=== PATIENT | male | born 1990 | race Caucasian/White ===

== ENCOUNTER → 2018-06-16 08:19 | Outpatient (CLI) | payer OTHER, SELFPAY ==
[2018-06-16 11:06] LABS: Anion Gap 10 (5-15); BUN 18 mg/dL (7-18); BUN/Creat Ratio 18.9 RATIO (10-20); Calcium,Total 9.3 mg/dL (8.5-10.1); Chloride 103 mmol/L (98-107); Creatinine, Serum 0.95 mg/dL (0.70-1.30); EST Glomerular Filtration Rate 101 mL/min (>60); Est Glom Filt Rate - Afr Amer 122 mL/min (>60); Glucose 96 mg/dL (74-106); Potassium 4.3 mmol/L (3.5-5.1); Sodium Level 138 mmol/L (136-145)
== END ==
PROVIDERS: Family Provider Family Medicine; PCP Family Medicine; Visit Provider Family Medicine
DX: I10 Essential (primary) hypertension (principal)
CPT/HCPCS: 36415; 80048

== ENCOUNTER → 2018-08-28 08:28 | Outpatient (CLI) | payer OTHER, SELFPAY ==
--- NOTE | 2018-08-28 08:36 | RAD_ITS ---
STUDY: X-RAY - LUMBAR SPINE REASON FOR EXAM: Male, 27 years old. Low back pain x2 weeks. TECHNIQUE: 5 view(s) of the lumbar spine were obtained. COMPARISON: None FINDINGS: Normal lumbar lordosis. There is no substantial scoliosis. There is a normal alignment of the vertebrae. Normal vertebral bodies and endplates. Normal disc space heights. The soft tissue structures are unremarkable. RAD/L/S Spine Min 4 Views IMPRESSION: Normal x-ray examination of the lumbar spine. Electronically Signed: Abdi Causey MD at 19:23 EST , Service support ,
--- OUTSIDE RECORDS SUMMARY | 2018-11-01 21:15 | XMS RPT_ITS ---
:1990 Author Organization OHIP Care Team Providers Name Role Phone Naren Dyer Attending Unavailable Naren Dyer Referring Unavailable Naren Dyer Primary Care Unavailable Naren Dyer Attending Unavailable Naren Dyer Referring Unavailable Manisha, Naren Primary Care Unavailable Naren Dyer Attending Unavailable Naren Dyer Primary Care Unavailable PROBLEMS PROBLEMS No Problem Records FoundPROCEDURES PROCEDURES No Procedure Records FoundRESULTS RESULTS INITAL EVALUATION (1) Observed: 09/04/2018 Status: F Source: [place] 6:13 PM [facility] [address] [place] [address] / REHABILITATION SERVICES INITIAL EVALUATION MR#: [id number] Acct: [id number] Name: DANIKA MCKEON Rep #: [id number] : 1990 27 From: Eddie Zhang PT, ATC Referring Dr.: Naren Dyer MD Status: REG RCR Insurance: [employer] [facility] [employer] Patient's Visit Information DANIKA MCKEON is a 27 year old M referred to Physical Therapy by Richard Dyer MD with a diagnosis of L piriformus syndrome. Date of Evaluation: 09/04/18 Physical Therapist: Eddie Zhang, PT, ATC - Visit Plan Frequency: 1x/Week Duration: 2 Weeks Plan: Pt was issued a HEP of LE stretching and foam rolling activity for his piriformus muscle pain. recheck in 1 week or DC at that time - Subjective Findings: Pt reports he has had pain in his L hip for 2 1/2 weeks now. Pt reports the pain is persistent in nature, and notes the pain has really been bothering her. Pt notes his pain originates in the L glute and extends down his L HS. Pt reports he has been taking aleve to aid with the pain, but just cant get rid of it. Pain is always terrible in the morning. Pt reports No tingling or numbness in L LE, just a soreness down L LE. Xrays of the L/S are negative. No sleep difficulty secondary to pain. Pt reports he works for [employer] and notes he stands on concrete 8 hours a day and lifts heavy objects. 2/10 pain at rest, 8/10 at worst. - Pain L hip Pain Intensity (Out of 10): 2 Pain Intensity Range: 8 - Objective Neuro: B LE sensation is WNL to light touch. B patellar reflex= 2/3. Palpation: Pt is very sore near greater trochaner and mid glute region. MMT: B LE's 5/5 throughout. Flexibility: Pt is very limited with Piriformus flexibility. Special tests: pos piriformus sign. NE with REIL or RFIL - Goals Goal 1:: I with HEP 1-2 visits Goal Time Frame: 1 Week - Rehabilitation Potential Physical Therapy Diagnosis: L hip pain, weakness, and difficulty with ambulation secondary to piriformux syndrome Rehabilitation Potential: Good - Anticipated Interventions Patient/Client Instruction: Educate patient on: Condition, Plan of Care For the Purpose of:: To improve self management Therapeutic Exercise to Include: Flexibilty training For the Purpose of:: To decrease pain, To improve muscle performance and motor function Thank you for the opportunity to evaluate your patient. For Medicare and Medicare HMO plans, please review the plan of care and approve it. It will need to be FAXED BACK to us at [phone] for Medicare purposes. For Medicare only, by signing this I certify the plan of care. Please let me know if there are questions or concerns regarding this plan of care. Physician Signature: Date: <Electronically signed by Eddie Zhang PT, ATC> 09/04/18 1813 CC: Naren Dyer MD [facility] Signed L/S SPINE MIN 4 Observed: 08/28/2018 Status: F Source: [place] VIEWS 8:36 AM [facility] Imaging Services [address] [place] [address] L/S Spine Min 4 Views MR#: [id number] Acct: [id number] Name: DANIKA MCKEON Rep #: [id number] : 1990 M 27 From: Abdi Causey MD PCP: Naren Dyer MD Status: REG CLI Study: L/S Spine Min 4 Views Date of Exam: 08/28/18 Exam# [id number] Ordering Dr: Richard Dyer MD STUDY: X-RAY - LUMBAR SPINE REASON FOR EXAM: Male, 27 years old. Low back pain x2 weeks. TECHNIQUE: 5 view(s) of the lumbar spine were obtained. COMPARISON: None FINDINGS: Normal lumbar lordosis. There is no substantial scoliosis. There is a normal alignment of the vertebrae. Normal vertebral bodies and endplates. Normal disc space heights. The soft tissue structures are unremarkable. RAD/L/S Spine Min 4 Views IMPRESSION: Normal x-ray examination of the lumbar spine. Electronically Signed: Abdi Causey MD at 19:23 EST , Service support , CC: Naren Dyer MD Athletic Shoe Designer: Signed BASIC METABOLIC Collected: 06/16/2018 Status: F Source: [place] PROFILE (BMP) 8:21 AM [facility] TYPE CODE TESTS RESULT OUT OF RANGE REFERENCE UNITS LAB L501.0100 74-106 mg/dL Normal GLU 96 Result Comment: Please note revised GLUCOSE reference range effective 2017. LAB L501.1000 7-18 mg/dL Normal BUN 18 LAB L501.1100 0.70-1.30 mg/dL Normal CREAT,SERUM 0.95 Result Comment: The validity of the calculated GFR AND GFRAA in patients over 70 years has not been determined. Clinical correlation is essential. LAB L501.1110 >60 mL/min Normal EST GFR 101 Result Comment: Non- GFR Calc LAB L501.1115 >60 mL/min Normal EST GFR - AA 122 Result Comment: GFR Calc LAB L501.1300 10-20 RATIO Normal BUN/CRE 18.9 LAB L501.2200 8.5-10.1 mg/dL CA Normal 9.3 LAB L501.5300 136-145 mmol/L NA Normal 138 LAB L501.5600 3.5-5.1 mmol/L K Normal 4.3 Result Comment: Slight Hemolysis, Result may be falsely increased. LAB L501.5900 98-107 mmol/L Normal CL 103 LAB L501.6100 21.0-32.0 mmol/L Normal CO2 25.0 LAB L501.6200 5-15 Normal GAP 10 Performed By: #### L500.2500 #### [facility] [address] [place] [place], [address] CNOV Observed: 12/06/2017 Status: COMPLETED Source: [place] 7:15 PM [facility] REPOSITORY Office Visit (WSTR) JAYA MCKEON ([id number]) 1990 M Date Time Provider Department 12/06/17 7:15 PM LOGAN BUTLER [facility] During your visit today, we recorded the following information about you: Temperature Pulse Respiration Blood pressure 98.3 degrees 74/minute 18/minute 140/90 Weight 133.4 kg Logan Butler MD 12/06/2017 7:26 PM Signed Patient presents with: Acute Visit: sore on thigh HPI: Skin Lesion: Location: left lateral thigh Noticed a few days ago, may have been present before that. Does not recall an injury. Pruritis/Pain: NO Change: NO Drainage/blister/pustule/ulceration: Firm muscle like under the skin MEDICATIONS: FLUTICASONE PROPIONATE (FLONASE ALLERGY RELIEF NASAL) Use in the nose. loratadine(CLARITIN 10 MG TAB) Take one(1) tablet daily prn ALLERGIES: ALLERGIES Allergen Reactions - Antihistamine [Diph* - Environmental [Othe* VITALS: BP 140/90 Pulse 74 Temp 36.8 ?C (98.3 ?F) (Left Tympanic) Resp 18 Wt 133.4 kg (294 lb) BMI 39.82 kg/m2 PE: Pleasant, in no acute distress. Leg: Left compared to right. 12x5cm soft mobile subcutaneous mass lateral mid thigh. ASSESSMENT/PLAN: 1. Lipoma of extremity - ICD9: 214.9, ICD10: D17.79 Most likely lipoma based on exam. He was advised to follow up with surgery if there are any changes or he has further concern. Logan Butler MD Referring Provider: SELF [200] Allergies As of Date: 12/06/2017 Noted Allergy Reaction ANTIHISTAMINE (DIPHENHYDRAMINE HC*06/28/2005 environmental [Other] 06/28/2005 Date Reviewed: 12/06/2017 Reviewed by: Cynthia Myers Ma - Fully Assessed Reason for Visit: Acute Visit [896] Cmt: sore on thigh Primary Visit Diagnosis:Lipoma of extremity [D17.79] Prescriptions as of 12/06/2017 Sig: FLONASE ALLERGY RELIEF NASAL Use in the nose. CLARITIN 10 MG TABLET Take one(1) tablet daily prn Problem List As Of Date 12/06/2017 Noted Resolved Lesion of Ulnar Nerve [G56.20] INVALID FOR* Follow-Up Examination, Following Unspecified Morales*INVALID FOR* Encounter Status:Closed by LOGAN BUTLER MD on 12/06/17 PROGRESS Observed: 12/06/2017 Status: COMPLETED Source: [place] 7:09 PM [facility] REPOSITORY HNO ID: [id number] Author: Logan Butler Service: (none) Author Type: Physician Type: Progress Notes Filed: 12/06/2017 7:26 PM Note Text: Patient presents with: Acute Visit: sore on thigh HPI: Skin Lesion: Location: left lateral thigh Noticed a few days ago, may have been present before that. Does not recall an injury. Pruritis/Pain: NO Change: NO Drainage/blister/pustule/ulceration: Firm muscle like under the skin MEDICATIONS: FLUTICASONE PROPIONATE (FLONASE ALLERGY RELIEF NASAL) Use in the nose. loratadine(CLARITIN 10 MG TAB) Take one(1) tablet daily prn ALLERGIES: ALLERGIES Allergen Reactions - Antihistamine [Diph* - Environmental [Othe* VITALS: BP 140/90 Pulse 74 Temp 36.8 ?C (98.3 ?F) (Left Tympanic) Resp 18 Wt 133.4 kg (294 lb) BMI 39.82 kg/m2 PE: Pleasant, in no acute distress. Leg: Left compared to right. 12x5cm soft mobile subcutaneous mass lateral mid thigh. ASSESSMENT/PLAN: 1. Lipoma of extremity - ICD9: 214.9, ICD10: D17.79 Most likely lipoma based on exam. He was advised to follow up with surgery if there are any changes or he has further concern. Logan Butler MD ALLERGIES ALLERGIES DATE TYPE / CODE NAME / CODE REACTION SEVERITY SOURCE DRUG DIPHENHYDRAMINE HCL [place] [address] INGREDI/[id number]( [facility] Main SNOMED CT) [place] Repository Miscellaneous OTHER [place] [address] Allergy/[id number]( [facility] SNOMED CT) [place] Repository ENCOUNTERS ENCOUNTERS ADMIT/DISCHARGE ACCOUNT ADMITTING ENCOUNTER LOCATION SOURCE NUMBER CLASS 09/04/2018 [id number] [facility] ing:PT Repository 08/28/2018 [id number] [facility] ing:HPRAD Repository 06/16/2018 [id number] [facility] ing:MFPLAB Repository 12/06/2017/12/10/[id number] Repository PAYERS PAYERS ENCOUNTER GUARANTOR PAYER SUBSCRIBER SOURCE 09/04/2018 JAYA Davila Primary DANIKA [id number] Insurance:MEDICAL MUSSELMANDOB: [id number] [address]Kpp: Number: Repository [id number] (HP) Date:[id number] [place] [id number]: 09/04/2018 Secondary DANIKA Pimentel Insurance:[facility] PACKAGE MUSSELMANDOB: [facility] Number: [id number] Hospital [id number] Repository Date:2018-08-28 09/04/2018 Tertiary NOT GIVENUNK [place] Insurance:SELF PAY [facility] Number: Effective Repository Date:2018-08-28 08/28/2018 Jaya Davila Primary DANIKA Pimentel [id number] Insurance:MEDICAL MUSSELMANDOB: [facility] [id number] [facility] [place] [address]Chb: Number: Repository [id number] (HP) Date:[id number] [address] [place], [place] [address]: 08/28/2018 Secondary NOT GIVENUNK [place] Insurance:SELF PAY [facility] Number: Effective Repository Date:2018-08-28 06/16/2018 Jaya Davila Primary DANIKA Pimentel [id number] Insurance:MEDICAL MUSSELMANDOB: [facility] [id number] [address]Noi: Number: Repository [id number] (HP) Date:[id number] [address] [address]GD: 06/16/2018 Secondary NOT GIVENUNK [place] Insurance:SELF PAY [facility] Number: Effective Repository Date:2018-06-16
== END ==
PROVIDERS: Family Provider Family Medicine; PCP Family Medicine; Referring Provider Family Medicine; Visit Provider Family Medicine
DX: M54.5 Low back pain (principal)
CPT/HCPCS: 72110

== ENCOUNTER 2018-12-31 16:00 | Outpatient (RCR) | payer OTHER, SELFPAY ==
--- NOTE | 2018-09-04 18:13 | HP.PTEVAL ---
Patient's Visit Information DANIKA MCKEON is a 27 year old M referred to Physical Therapy by Richard Dyer MD with a diagnosis of L piriformus syndrome. Date of Evaluation: 09/04/18 Physical Therapist: Eddie Zhang PT, ATC - Visit Plan Frequency: 1x/Week Duration: 2 Weeks Plan: Pt was issued a HEP of LE stretching and foam rolling activity for his piriformus muscle pain. recheck in 1 week or DC at that time - Subjective Findings: Pt reports he has had pain in his L hip for 2 1/2 weeks now. Pt reports the pain is persistent in nature, and notes the pain has really been bothering her. Pt notes his pain originates in the L glute and extends down his L HS. Pt reports he has been taking aleve to aid with the pain, but just cant get rid of it. Pain is always terrible in the morning. Pt reports No tingling or numbness in L LE, just a soreness down L LE. Xrays of the L/S are negative. No sleep difficulty secondary to pain. Pt reports he works for [email or web address] and notes he stands on concrete 8 hours a day and lifts heavy objects. 2/10 pain at rest, 8/10 at worst. - Pain L hip Pain Intensity (Out of 10): 2 Pain Intensity Range: 8 - Objective Neuro: B LE sensation is WNL to light touch. B patellar reflex= 2/3. Palpation: Pt is very sore near greater trochaner and mid glute region. MMT: B LE's 5/5 throughout. Flexibility: Pt is very limited with Piriformus flexibility. Special tests: pos piriformus sign. NE with REIL or RFIL - Goals Goal 1:: I with HEP 1-2 visits Goal Time Frame: 1 Week - Rehabilitation Potential Physical Therapy Diagnosis: L hip pain, weakness, and difficulty with ambulation secondary to piriformux syndrome Rehabilitation Potential: Good - Anticipated Interventions Patient/Client Instruction: Educate patient on: Condition, Plan of Care For the Purpose of:: To improve self management Therapeutic Exercise to Include: Flexibilty training For the Purpose of:: To decrease pain, To improve muscle performance and motor function Thank you for the opportunity to evaluate your patient. For Medicare and Medicare HMO plans, please review the plan of care and approve it. It will need to be FAXED BACK to us at [phone] for Medicare purposes. For Medicare only, by signing this I certify the plan of care. Please let me know if there are questions or concerns regarding this plan of care. Physician Signature: Date:
--- NOTE | 2019-02-23 15:53 | HP.PTDCSUM ---
HP - PT D/C Summary It has been my pleasure to treat DANIKA MCKEON under orders from Richard Dyer MD, for the diagnosis of L piriformus syndrome for a total of 11 visit(s). Discharge Date: Please see the following information for a summary of their discharge status. - Subjective Subjective: Patient reports pain is some better but cont to have pain left buttuck and shift deformity. Discussed with patient about RTD and possible chiropractor,. Talked to Dr Dyer - Pain L hip Pain Intensity (Out of 10): 3 - Overall Improvement % Improvement: 70 - Objective Objective/Function: POSTURE: right lateral shift deformity. NEURO: REFLEXES 2/3 L3-4,L4-5,L5-S1. MMT: 5/5. LUMBAR ROM: flexion min ,extension pain buttuck. left side glides pain,extension pain buttuck. REIL WITH HIP TO RIGHT PAIN ,RIGHTSIDE GLIDES PAIN BUTTUCK - Goals Goal 1:: I with HEP 1-2 visits Goal Progress: Goal Met - Plan Plan: RTD ,POSSIBLE CHIROPRACTOR DISCUSSED WITH MD. IF NOT BETTER WITH CHIROPRCATOR POSSIBLE MRI - D/C Information If there are questions or concerns regarding this patient's physical therapy, please feel free to call me at [phone]. Thank you for the referral of this patient. Sincerely, Reginald López, PT, Cert MDT, OCS
== END 2018-12-31 19:00 | disposition home or self-care (01) ==
LOC: PT 16:00
PROVIDERS: Family Provider Family Medicine; PCP Family Medicine; Referring Provider Family Medicine; Visit Provider Family Medicine
DX: G57.02 Lesion of sciatic nerve, left lower limb (principal)
CPT/HCPCS: 97014; 97110; 97161; 97530; G0283

== ENCOUNTER → 2019-05-11 10:14 | Outpatient (CLI) | payer OTHER, SELFPAY ==
[2019-02-05 16:53] VITALS: BMI 41.3
[2019-05-11 13:07] LABS: Vitamin D,25 Hydroxy 23.3 ng/mL (29.95-100.01)
[2019-05-11 13:12] LABS: ALB/GLOB Ratio 1.2 RATIO (0.9-2.4); AST(SGOT) 22 U/L (15-37); Alanine Aminotransfer ALT/SGPT 39 U/L (16-61); Alkaline Phosphatase 79 U/L (45-117); Anion Gap 7 (5-15); BUN 14 mg/dL (7-18); BUN/Creat Ratio 16.6 RATIO (10-20); Calcium,Total 9.6 mg/dL (8.5-10.1); Chloride 104 mmol/L (98-107); Cholesterol 183 mg/dL (200); Creatinine, Serum 0.84 mg/dL (0.70-1.30); EST Glomerular Filtration Rate 115 mL/min (>60); Est Glom Filt Rate - Afr Amer 139 mL/min (>60); Globulin 3.4 g/dL (2.2-4.2); Glucose 100 mg/dL (74-106); High Density Lipoprotein 42 mg/dL; Potassium 4.5 mmol/L (3.5-5.1); Protein, Total 7.4 g/dL (6.4-8.2); Sodium Level 137 mmol/L (136-145); Triglycerides 232 mg/dL; Very Low Density Lipoprotein 46 mg/dL (5-40)
== END ==
PROVIDERS: Family Provider Family Medicine; PCP Family Medicine; Referring Provider Family Medicine; Visit Provider Family Medicine
DX: I10 Essential (primary) hypertension (principal); E55.9 Vitamin D deficiency, unspecified
CPT/HCPCS: 36415; 80053; 80061; 82306

== ENCOUNTER → 2020-08-18 09:43 | Outpatient (CLI) | payer BC, SELFPAY ==
[2019-02-05 16:53] VITALS: BMI 41.3
[2020-08-18 13:00] LABS: ALB/GLOB Ratio 1.1 RATIO (0.9-2.4); AST(SGOT) 28 U/L (15-37); Alanine Aminotransfer ALT/SGPT 43 U/L (16-61); Albumin, Serum 3.9 g/dL (3.2-5.0); Alkaline Phosphatase 71 U/L (45-117); Anion Gap 8 (5-15); BUN 13 mg/dL (7-18); BUN/Creat Ratio 15.9 RATIO (10-20); Calcium,Total 9.2 mg/dL (8.5-10.1); Chloride 104 mmol/L (98-107); Cholesterol 189 mg/dL (200); Creatinine, Serum 0.82 mg/dL (0.70-1.30); EST Glomerular Filtration Rate 118 mL/min (>60); Est Glom Filt Rate - Afr Amer 142 mL/min (>60); Globulin 3.5 g/dL (2.2-4.2); Glucose 104 mg/dL (74-106); High Density Lipoprotein 35 mg/dL; Protein, Total 7.4 g/dL (6.4-8.2); Sodium Level 135 mmol/L (136-145); Triglycerides 163 mg/dL; Very Low Density Lipoprotein 33 mg/dL (5-40)
== END ==
PROVIDERS: PCP Family Medicine; Referring Provider Family Medicine; Visit Provider Family Medicine
DX: R73.01 Impaired fasting glucose (principal)
CPT/HCPCS: 36415; 80053; 80061

== ENCOUNTER 2021-07-29 03:25 | Emergency (ER) | payer OTHER, SELFPAY ==
[2021-07-29 03:26] VITALS: BP 164/93; PULSE 109; RESP 23; TEMP 36.8; O2SAT 96; BMI 48.4
--- NOTE | 2021-07-29 03:33 | CT_ITS ---
HISTORY: Syncope TECHNIQUE: Multiple axial images were obtained of the brain without intravenous contrast. Coronal and sagittal reformats obtained. Bone algorithm axial images obtained. A radiation dose optimization technique was used for this scan. COMPARISON: None FINDINGS: # of images incl. paperwork: 259 HEMORRHAGE: No evidence of acute intracranial hemorrhage. CEREBRAL PARENCHYMA: --Volume: Unremarkable for age. --White matter: Unremarkable. --Mass: No evidence of intracranial mass. --Stroke: Dillon-white matter differentiation is preserved. VENTRICULAR SYSTEM: No hydrocephalus. MASS EFFECT: No midline shift or focal sulci effacement. Basal cisterns are preserved. SCALP: No large scalp hematoma. CALVARIUM/SKULL BASE: No fracture. PARANASAL SINUSES: Clear. MASTOID AIR CELLS: Clear. ORBITS: Imaged portions are unremarkable. ASPECTS acute stroke score: 10 CT/Brain/Head without Contrast IMPRESSION: No CT evidence of acute intracranial hemorrhage or injury. Individualized dose optimization techniques were used for this CT. at 0435 Reported and signed by: Ray Long MD Electronically Signed: Ray Long MD at 4:34 EST Tel , Service support ,
--- NOTE | 2021-07-29 03:33 | EKG12_ITS ---
Test Reason : DYSRHYTHMIA Blood Pressure : / mmHG Vent. Rate : 108 BPM Atrial Rate : 108 BPM P-R Int : 146 ms QRS Dur : 094 ms QT Int : 338 ms P-R-T Axes : 046 -13 022 degrees QTc Int : 452 ms Sinus tachycardia Otherwise normal ECG Confirmed by MARCIO SAMAYOA, PEDRO ([id number]), book editor TASNEEM LIMA ([id number]) on 07/31/2021 11:29:01 AM Referred By: THEODORE Confirmed By:PEDRO BUCKLEY MD
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
[2021-07-29] MEDS: 0.9% Normal Saline 1,000 ML 1000 ML IV (03:54)
[2021-07-29 03:58] LABS: Absolute Lymphocyte Count 1.77 X10^3/uL (0.83-4.51); Basophil# 0.05 X10^3/uL; Basophil% 0.3 % (0-1); Eosinophil# 0.03 X10^3/uL; Eosinophils% 0.2 % (0-5); Hemoglobin 15.4 g/dL (13.0-16.5); Lymphocyte # 1.77 X10^3/ul (0.83-4.51); Lymphocyte % 9.6 % (19-41); Mean Corp Hgb Conc 34.2 g/dL (32-36); Mean Corpuscular Hgb 30.9 pg (27.0-32.0); Mean Corpuscular Volume 90.2 fL (80-94); Mean Platelet Vol. 10.4 fl (6.2-12.0); Monocyte# 1.44 X10^3/uL; Monocyte% 7.8 % (0-10); NRBC Flagged by Analyzer 0 % (0-5); Neutrophil # 14.97 X10^3/uL (2.7-7.7); Neutrophil % 81.3 % (47-70); Platelet Count 237 K/mm3 (150-450); RBC Distribution Width CV 13.6 % (11.6-14.6); RBC Distribution Width SD 45.3 fl (35.1-43.9); Red Blood Count 4.99 M/mm3 (4.6-6.2); White Blood Count 18.4 K/mm3 (4.4-11.0)
[2021-07-29 04:17] LABS: ALB/GLOB Ratio 1.1 RATIO (0.9-2.4); AST(SGOT) 30 U/L (15-37); Alanine Aminotransfer ALT/SGPT 48 U/L (16-61); Albumin, Serum 3.8 g/dL (3.2-5.0); Alkaline Phosphatase 68 U/L (45-117); Anion Gap 10 (5-15); BUN 14 mg/dL (7-18); BUN/Creat Ratio 16.5 RATIO (10-20); Calcium,Total 8.7 mg/dL (8.5-10.1); Chloride 101 mmol/L (98-107); Creatinine, Serum 0.85 mg/dL (0.70-1.30); EST Glomerular Filtration Rate 112 mL/min (>60); Est Glom Filt Rate - Afr Amer 135 mL/min (>60); Estimated Creatinine Clearance 143.61 ml/min; Globulin 3.6 g/dL (2.2-4.2); Glucose 130 mg/dL (74-106); Potassium 4.1 mmol/L (3.5-5.1); Protein, Total 7.4 g/dL (6.4-8.2); Sodium Level 134 mmol/L (136-145)
[2021-07-29 05:45] VITALS: BP 144/80; PULSE 98; RESP 16; O2SAT 97
== END 2021-07-29 05:50 | disposition home or self-care (01) ==
PROVIDERS: Emergency Provider Emergency Medicine; PCP Family Medicine
DX: R55 Syncope and collapse (principal); I10 Essential (primary) hypertension; E66.9 Obesity, unspecified; Z68.42 Body mass index [BMI] 45.0-49.9, adult; Z79.899 Other long term (current) drug therapy
CPT/HCPCS: 70450; 80053; 82077; 85025; 93005; 96360; 96361; 99285; J7030

== ENCOUNTER → 2021-08-07 16:55 | Outpatient (CLI) | payer OTHER, SELFPAY ==
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
== END ==
PROVIDERS: PCP Family Medicine; Referring Provider Nurse Practitioner Family; Visit Provider Nurse Practitioner Family
DX: M25.552 Pain in left hip (principal)
CPT/HCPCS: 73502

== ENCOUNTER 2021-08-31 09:12 | Outpatient (CLI) | payer OTHER, SELFPAY ==
--- NOTE | 2021-08-31 09:16 | RAD_ITS ---
STUDY: X-RAY - RIGHT HAND REASON FOR EXAM: Right hand injury, tenderness over the third metacarpal head with some swelling. TECHNIQUE: 3 view(s) of the hand. COMPARISON: None. FINDINGS: Normal radiocarpal articulation. Normal distal radioulnar joint. There is a scaphoid fracture. Normal carpal articulations Normal carpometacarpal articulation of the thumb. Normal second through fifth carpometacarpal joints. Normal metacarpi. Normal metacarpophalangeal joint of the thumb. Normal interphalangeal joint of the thumb. Normal proximal and distal phalanges of the thumb. Normal metacarpophalangeal joints of the second through fifth fingers. Normal proximal and distal interphalangeal joints of the second through fifth fingers. There is a nondisplaced fracture of the ulnar base of the fourth distal phalanx. The soft tissue structures are unremarkable. RAD/Hand Min 3 Views IMPRESSION: Scaphoid fracture. Fourth distal phalangeal fracture. Electronically Signed: Neil Kirk MD at 12:14 EST Tel , Service support ,
--- NOTE | 2021-08-31 09:16 | RAD_ITS ---
ACR Level 3 findings have been noted. An addendum which confirms receipt of the report will follow. STUDY: X-RAY - RIGHT WRIST REASON FOR EXAM: Right wrist pain in the scaphoid area, right wrist injury before [place]. TECHNIQUE: 4 view(s) of the wrist were obtained. COMPARISON: None. FINDINGS: Normal visualized distal radius and ulna. Normal radiocarpal articulation. Normal distal radioulnar articulation. There is a nondisplaced fracture of the proximal pole of the scaphoid. Normal carpal articulations. Normal carpometacarpal articulation of the thumb. Normal second through fifth carpometacarpal articulations. Normal visualized metacarpal bones. The soft tissue structures are unremarkable. RAD/Wrist min 3 Views IMPRESSION: Scaphoid fracture. Electronically Signed: Neil Kirk MD at 11:46 EST Tel , Service support ,
== END 2021-08-31 23:59 | disposition short-term general hospital (02) ==
LOC: MTRAD 09:13
PROVIDERS: PCP Family Medicine; Referring Provider Family Medicine; Visit Provider Family Medicine
DX: M25.531 Pain in right wrist (principal)
CPT/HCPCS: 73110; 73130

== ENCOUNTER 2021-10-11 12:04 | Outpatient (CLI) | payer OTHER, SELFPAY ==
[2021-10-11 15:24] LABS: Hematocrit 46.9 % (40-54); Hemoglobin 15.9 g/dL (13.0-16.5); Mean Corp Hgb Conc 33.9 g/dL (32-36); Mean Corpuscular Hgb 30.6 pg (27.0-32.0); Mean Corpuscular Volume 90.4 fL (80-94); Mean Platelet Vol. 11.1 fl (6.2-12.0); Platelet Count 241 K/mm3 (150-450); RBC Distribution Width CV 13.2 % (11.6-14.6); RBC Distribution Width SD 44.4 fl (35.1-43.9); Red Blood Count 5.19 M/mm3 (4.6-6.2); White Blood Count 7.6 K/mm3 (4.4-11.0)
[2021-10-11 15:38] LABS: Partial Thromboplast Time 34.8 Seconds (24.1-36.2)
[2021-10-11 16:11] LABS: Anion Gap 11 (5-15); BUN 15 mg/dL (7-18); BUN/Creat Ratio 21.6 RATIO (10-20); Calcium,Total 9.3 mg/dL (8.5-10.1); Chloride 102 mmol/L (98-107); Creatinine, Serum 0.69 mg/dL (0.70-1.30); EST Glomerular Filtration Rate 141 mL/min (>60); Est Glom Filt Rate - Afr Amer 171 mL/min (>60); Glucose 90 mg/dL (74-106); Potassium 4.2 mmol/L (3.5-5.1); Sodium Level 135 mmol/L (136-145)
== END 2021-10-11 23:59 | disposition home or self-care (01) ==
LOC: MFPLAB 12:09
PROVIDERS: PCP Family Medicine; Referring Provider Family Medicine; Visit Provider Family Medicine
DX: Z01.818 Encounter for other preprocedural examination (principal)
CPT/HCPCS: 36415; 80048; 85027; 85610; 85730

== ENCOUNTER → 2022-06-28 | Outpatient (CLI) | payer OTHER, SELFPAY ==
[2022-06-28 11:04] LABS: AST(SGOT) 23 U/L (15-37); Alanine Aminotransfer ALT/SGPT 42 U/L (16-61); Albumin, Serum 3.7 g/dL (3.2-5.0); Alkaline Phosphatase 78 U/L (45-117); Anion Gap 8 (5-15); BUN 13 mg/dL (7-18); Calcium,Total 9.5 mg/dL (8.5-10.1); Chloride 103 mmol/L (98-107); Cholesterol 168 mg/dL (200); Creatinine, Serum 0.76 mg/dL (0.70-1.30); EST Glomerular Filtration Rate 126 mL/min (>60); Est Glom Filt Rate - Afr Amer 153 mL/min (>60); Globulin 3.7 g/dL (2.2-4.2); Glucose 112 mg/dL (74-106); High Density Lipoprotein 37 mg/dL; Potassium 4.3 mmol/L (3.5-5.1); Protein, Total 7.4 g/dL (6.4-8.2); Sodium Level 136 mmol/L (136-145); Thyroid Stim Hormone (TSH) 2.18 uIU/mL (0.358-3.74); Triglycerides 140 mg/dL; Very Low Density Lipoprotein 28 mg/dL (5-40)
== END | disposition home or self-care (01) ==
LOC: MFPLAB 09:19
PROVIDERS: PCP Family Medicine; Referring Provider Family Medicine; Visit Provider Family Medicine
DX: R73.01 Impaired fasting glucose (principal)
CPT/HCPCS: 36415; 80053; 80061; 82533; 84403; 84443

== ENCOUNTER → 2023-09-09 | Outpatient (CLI) | payer OTHER, SELFPAY ==
[2023-09-09 13:00] LABS: AST(SGOT) 20 U/L (15-37); Alanine Aminotransfer ALT/SGPT 39 U/L (16-61); Albumin, Serum 3.7 g/dL (3.2-5.0); Alkaline Phosphatase 72 U/L (45-117); Anion Gap 5 (5-15); BUN 12 mg/dL (7-18); BUN/Creat Ratio 15.6 RATIO (10-20); Calcium,Total 9.3 mg/dL (8.5-10.1); Chloride 106 mmol/L (98-107); Creatinine, Serum 0.77 mg/dL (0.70-1.30); EST Glomerular Filtration Rate 124 mL/min (>60); Est Glom Filt Rate - Afr Amer 150 mL/min (>60); Globulin 3.6 g/dL (2.2-4.2); Glucose 95 mg/dL (74-106); Protein, Total 7.3 g/dL (6.4-8.2); Sodium Level 136 mmol/L (136-145)
== END | disposition home or self-care (01) ==
LOC: MFPLAB 10:29
PROVIDERS: PCP Family Medicine; Visit Provider Family Medicine
DX: R10.13 Epigastric pain (principal)
CPT/HCPCS: 36415; 80053; 84403

== ENCOUNTER 2024-03-16 13:57 | Emergency (ER) | payer OTHER, SELFPAY ==
[2024-03-16] VITALS (8 sets, daily range): BP systolic 126–173; BP diastolic 66–120; PULSE 89–100; RESP 15–31; TEMP 36.4–36.9; O2SAT 97–100; BMI 50.3
--- NOTE | 2024-03-16 14:04 | EDS_ITS ---
HPI History of Present Illness Chief Complaint: Upper Extremity Injury [facility] Medical History Anterior dislocation of right shoulder Fracture of humeral head, right, closed Shoulder pain Hypertension Asthma Home Medications ?Medication ?Instructions ?Recorded ?Last Taken ?Type cholecalciferol (vitamin D3) 50 2,000 unit PO DAILY 01/27/19 Unknown History mcg (2,000 unit) capsule ibuprofen 200 mg tablet 200 mg PO Q6H 01/27/19 Unknown History lisinopril 10 mg tablet 10 mg PO DAILY 01/27/19 Unknown History escitalopram oxalate 10 mg tablet 10 mg PO DAILY 07/29/21 Unknown History famotidine 40 mg tablet 40 mg PO DAILY 07/29/21 Unknown History fluticasone propionate 50 intranasal PRN Allergic Symptoms 07/29/21 Unknown History mcg/actuation nasal spray,suspension Allergy/AdvReac Type Severity Reaction Status Date / Time No Known Allergies Allergy Verified 03/16/24 13:57 Family History Other Hypertension Surgical History History of elbow surgery Social History Smoking Status: Never smoker alcohol intake: current alcohol intake frequency: a few times a month substance use type: does not use what type of physical activity do you participate in: walking frequency: 1-2 times per week EXAM Physical Exam Const Vital Signs: 03/16/24 13:57 Temperature 98.4 F Temperature Source Temporal Pulse Rate 100 Respiratory Rate 18 Blood Pressure 173/120 H Blood Pressure Mean 137 Pulse Ox 97 Oxygen Delivery Method Room Air [facility] [place] Narrative Medical decision making narrative: HISTORY OF PRESENT ILLNESS: 33-year-old male presents with Right shoulder pain. States he was sent in because his shoulder is dislocated and fractured. Notes he self mechanical fall on 03/14/2024. Follow-up with his primary care physician because pain was not getting any better. Patient denies head trauma. Denies loss of consciousness. REVIEW OF SYSTEMS: Pertinent positives: Right shoulder pain Pertinent negatives: Numbness, tingling PHYSICAL EXAM: Nursing triage notes reviewed, Vital signs reviewed Constitutional: please see mdm HENT: MMM, Mallampati score 1 Eyes: Pupils equal round and reactive to light, Extraocular muscles intact Neck: No stridor, no JVD, full neck ROM Lungs: Clear to auscultation, No wheezing or rales. No increased work of breathing, no conversational dyspnea, no accessory muscle use, no nasal flaring. No respiratory distress noted Heart: Regular rate and rhythm, No murmurs, No rubs and No gallops, 2+ distal pulses (radial, femoral, posterior tibial) in all extremities Abdomen: Soft, there is no tenderness, rigidity, rebound or guarding, no obvious peritoneal signs, no palpable pulsatile abdominal masses, no auscultated abdominal bruit : No CVAT Extremities: No edema, bruising noted to right upper extremity, slight step-off however it is obscured by patient's body habitus. Neuro: Intact 5/5 strength with ok sign (median), intact finger abduction (ulnar) intact wrist extension (radial n). Intact sensation in the radial, ulnar, and median nerve distributions. Intact axillary nerve function Skin: No rash or lesions noted MEDICAL DECISION MAKING: Chief Complaint: shoulder pain External records reviewed: Reviewed prior imaging: Reviewed x-ray from today. Showed anterior-inferior dislocation of the right shoulder with a fracture fragment noted to the greater tuberosity of the humerus. Factors affecting care: Shoulder fracture/dislocation Social determinants of health: none History obtained from others: none Consults: Orthopedic surgery (Dr. Parikh) MDM Narrative: Patient was initially hypertensive with a blood pressure 173/120, otherwise afebrile and nontoxic-appearing I considered the following differential diagnosis: Shoulder fracture, dislocation, vascular injury Exam shows a neurovascular intact right upper extremity. ALL IMAGES (IF OBTAINED) HAVE BEEN PERSONALLY REVIEWED AND INTERPRETED BY MYSELF. NO Need to repeat imaging at this time. I consulted orthopedics to discuss their recommendation as to how to proceed given fracture of the greater tuberosity. Spoke to Dr. Parikh. He recommended calling the no doc. further recommended attempting reduction and if unsuccessful transfer to trauma center. Patient was sedated with propofol. Reduction was performed. Post reduction x- ray was read reviewed by myself shows adequate reduction however there is still persistent avulsion fracture of the greater tuberosity. Patient remained neurovascularly intact and was placed in a sling. He was given IV pain medication. Patient was neurovascular intact prior to and after sling. He was discharged with close orthopedic follow-up, sling, return precautions. Narcotic pain medication prescribed. Tylenol ibuprofen instructions given. The procedure was performed by myself. Intra-Service Time: 15 minutes Indication: Completion of a potentially painful procedure. Pre-sedation Evaluation: Evaluated at 3:30 PM, ASA class I, Mallampati score of 1 Patient is an appropriate candidate for procedural sedation. The risks of sedation were discussed with the patient and/or legal guardian. A time out was completed. The patient was reevaluated immediately prior to initiation of sedation. IV access established. The patient was sedated with 200 mg of propofol. The patient was monitored with continuous pulse oximetry, awake overnight monitor, and capnography. The patient protected their airway well, with vital signs remaining stable throughout the duration of the procedure. There were no complications and no significant hypoxemia. I remained at the bedside for the sedation. I provided 15 minutes of intra-service time. Post sedation evaluation: Patient was alert and cooperative, hemodynamically stable with appropriate respiratory status, temperature and pain control without ongoing nausea and vomiting. The patient and/or family, caregivers express understanding. The patient and/or family, caregivers agrees with the plan. Shared decision making: I will have a discussion with the patient and or visitors regarding risk/benefits of further testing or admission. They will be made aware of of the risk/benefits inherent in this decision they will be given the opportunity to voice understanding. Total critical care time today provided was at least 0 minutes. This excludes separately billable procedures. Critical care time (if documented) is secondary to the patient having high probability of clinically significant/life threatening deterioration in the patient's condition which required my urgent intervention. Impression: 1. Right shoulder fracture dislocation 2. Avulsion fracture of the right greater tuberosity Dispo: Discharge home This note was generated with [employer] dictation software. It may contain incorrect words, spelling, and punctuation that were not noted in review of the chart prior to signing. Discharge Plan Triage Chief Complaint: Upper Extremity Injury ED Provider: Vijay Taylor Dx/Rx/DC Orders Prescriptions: No Action lisinopril 10 mg tablet 10 mg PO DAILY ibuprofen 200 mg tablet 200 mg PO Q6H cholecalciferol (vitamin D3) 2,000 unit capsule 2,000 unit PO DAILY famotidine 40 mg tablet 40 mg PO DAILY Patient Comments: TAKE 1 TABLET DAILY fluticasone propionate 50 mcg/actuation spray,suspension INTRANASAL PRN (Reason: Allergic Symptoms) Patient Comments: USE 1-2 SPRAYS IN EACH NOSTRIL EVERY DAY escitalopram oxalate 10 mg tablet 10 mg PO DAILY Patient Comments: TAKE 1 TABLET BY MOUTH EVERY DAY Primary Care Provider: Naren Dyer Referrals: Naren Dyer MD [Primary Care Provider] - Print Language: Amharic
[2024-03-16] MEDS: Morphine 4 MG/ML Syringe IV (14:25)
[2024-03-16] MEDS: Ondansetron 4 MG/2 ML Vial IV (15:51)
[2024-03-16] MEDS: Propofol 200 MG/20 ML Vial 100 MG IV BOLUS (16:02)
--- NOTE | 2024-03-16 16:10 | RAD_ITS ---
STUDY: X-RAY - RIGHT SHOULDER REASON FOR EXAM: Male, 33 years old. post reduction TECHNIQUE: 3 view(s) of the shoulder. COMPARISON: March 16, 2024:12 PM FINDINGS: Previously noted right shoulder dislocation has been reduced with orthodox of joint to normal anatomic configuration however there is persistent separation of avulsed greater tuberosity fracture fragment. . RAD/Shoulder min 2 Views IMPRESSION: Persistent avulsion fracture of greater tuberosity status post reduction of previously noted right shoulder dislocation Electronically Signed: Ike Weaver MD at 16:35 EDT ,
[2024-03-16] MEDS: HYDROmorphone 0.5 MG/0.5 ML SYRINGE IV (16:37)
== END 2024-03-16 17:08 | disposition home or self-care (01) ==
PROVIDERS: Emergency Provider Emergency Medicine; PCP Family Medicine; Visit Provider Emergency Medicine
DX: S42.251A Displaced fracture of greater tuberosity of right humerus, initial encounter for closed fracture (principal); I10 Essential (primary) hypertension; W19.XXXA Unspecified fall, initial encounter; J45.909 Unspecified asthma, uncomplicated; Z79.899 Other long term (current) drug therapy
CPT/HCPCS: 23665; 73030; 96374; 96375; 99283; J7030; A4216; J2405

== ENCOUNTER → 2024-03-16 | Outpatient (CLI) | payer OTHER, SELFPAY ==
--- NOTE | 2024-03-16 11:48 | RAD_ITS ---
STUDY: X-RAY - RIGHT SHOULDER REASON FOR EXAM: Male, 33 years old. Sprain. TECHNIQUE: 2 views of the right shoulder. COMPARISON: None. FINDINGS: There is anterior-inferior dislocation of the right humeral head with respect to the glenoid. There is a fracture of the greater tuberosity of the humeral head, with approximately 3 cm displacement. Normal acromioclavicular joint. Normal acromion. The soft tissue structures are unremarkable. Normal visualized pulmonary apex. RAD/Shoulder min 2 Views IMPRESSION: Anterior-inferior dislocation at the right glenohumeral joint. Fracture of the greater tuberosity of the humeral head, with approximately 3 cm displacement. Electronically Signed: Poli Smith MD at 12:08 EDT ,
== END | disposition home or self-care (01) ==
PROVIDERS: PCP Family Medicine; Referring Provider Physician Assistant; Visit Provider Physician Assistant
DX: T14.8XXA Other injury of unspecified body region, initial encounter (principal)
CPT/HCPCS: 73030

== ENCOUNTER → 2024-03-17 | Outpatient (CLI) | payer OTHER, SELFPAY ==
--- NOTE | 2024-03-17 15:24 | CT_ITS ---
STUDY: CT RIGHT SHOULDER REASON FOR EXAM: Male, 33 years old. Assess GT fracture and reduction RADIATION DOSAGE (If Supplied By Facility): CTDIvol = ( 59.95 ) mGy, DLP = ( 1591.92 ) mGycm TECHNIQUE: The patient was scanned in a multi detector CT scanner. High resolution transaxial imaging was performed without the administration of intravenous contrast material. Sagittal and coronal images were reconstructed. Individualized dose optimization techniques were used for this CT. COMPARISON: Comparison is made with prior radiographs dated March 16, 2024. FINDINGS: Normal glenohumeral articulation. Normal glenoid rim, neck and visualized scapula. There is evidence of a comminuted fracture involving the greater tuberosity of the proximal humerus. There is also evidence of a nondisplaced transverse fracture of the surgical neck of the humerus. Normal coracoid process. Normal visualized lateral clavicle. Normal acromioclavicular articulation. There is a Type II morphology (curved), with a neutral orientation. Soft tissue swelling. CT/Extremity Upper without Contra IMPRESSION: Comminuted avulsed displaced fracture of the greater tuberosity as well as a nondisplaced transverse fracture through the surgical neck of the proximal humerus. Soft tissue swelling. Electronically Signed: John Musa MD at 15:44 EDT ,
== END | disposition home or self-care (01) ==
LOC: CT 15:18
PROVIDERS: PCP Family Medicine; Referring Provider Orthopaedic Surgery Sports Medicine; Visit Provider Orthopaedic Surgery Sports Medicine
DX: S42.253A Displaced fracture of greater tuberosity of unspecified humerus, initial encounter for closed fracture (principal); S43.016A Anterior dislocation of unspecified humerus, initial encounter
CPT/HCPCS: 73200

== ENCOUNTER 2024-03-25 11:17 | Day surgery (SDC) | payer OTHER, SELFPAY ==
[2024-03-25] VITALS (8 sets, daily range): BP systolic 117–152; BP diastolic 59–89; PULSE 79–85; RESP 16–18; TEMP 36.1–37; O2SAT 92–98; BMI 50.8
[2024-03-25] MEDS: Lactated Ringers 1,000 ML 15 ML IV (11:47)
--- NOTE | 2024-03-25 11:48 | HP.PCM_ITS ---
HPI - General HPI Narrative KAI MCKEON, is a 33 M who presents for open reduction internal fixation right proximal humerus, possible rotator cuff repair, possible proximal biceps tenodesis. No changes to history and physical exam. Right shoulder marked. Patient understands wished to proceed. Risk alternatives benefits discussed as well as postop instructions and narcotic counseling. MR#: [id number] Acct: [id number] Name: KAI MCKEON Rep #: [id number] : 1990 Provider: Dr. Roman Davison MD Age/Sex: 33/M [place] [facility] [place] Status: Signed Intake Vital Signs 03/17/2410:30 03/17/2415:58 Height 6 ft 1 in 6 ft 1 in Weight: 383 lb BMI 50.5 Intake Visit Reasons: RIGHT SHOULDER Chief Complaint: CT review Allergies No Known Allergies Allergy (Verified 03/19/24 13:27) Medications ?Medication ?Instructions ?Recorded ?Confirmed ?Type cholecalciferol (vitamin D3) 50 2,000 unit PO DAILY 01/27/19 03/19/24 History mcg (2,000 unit) capsule lisinopril 10 mg tablet 10 mg PO DAILY 01/27/19 03/19/24 History escitalopram oxalate 10 mg tablet 10 mg PO DAILY 07/29/21 03/19/24 History famotidine 40 mg tablet 40 mg PO DAILY 07/29/21 03/19/24 History fluticasone propionate 50 intranasal PRN Allergic Symptoms 07/29/21 03/19/24 History mcg/actuation nasal spray,suspension acetaminophen 325 mg capsule 650 mg PO ONCE PRN 03/17/24 03/19/24 History (Tylenol) ibuprofen 200 mg tablet 600 mg PO Q6H 03/17/24 03/19/24 History PFSH Medical History Anterior dislocation of right shoulder Fracture of humeral head, right, closed Shoulder pain Hypertension Asthma Surgical History History of elbow surgery Family History Other Hypertension Social History Smoking Status: Never smoker alcohol intake: current alcohol intake frequency: a few times a month substance use type: does not use what type of physical activity do you participate in: walking frequency: 1-2 times per week HPI RIGHT SHOULDER Details: This documentation accurately reflects the service provided and the decisions made by me, Dr. Roman Davison MD 03/19/24 [id number]. Part of today?s visit was documented by [ ], acting as scribe. KAI MCKEON is a 33 year old M here today for follow-up right proximal humerus shoulder CT scan for surgical planning Ortho Exam General General: Yes no acute distress Neurologic: Yes alert and Yes oriented x3 Psychologic: Yes reasonable and appropriate Right Wrist/Hand Motor: EPL: 5, FDP-2: 5, 1st Dorsal Interosseous: 5 and APB: 5 Sensation: Radial: I, Ulnar: I and Median: I Right Shoulder Skin/Wound: Yes CDI, Yes ecchymosis, No erythema and Yes swelling SHOULDER: nvi ax nerve no pain elbow wrist or hand Supplemental Info [facility] [address] [place] [address] [id number] Extremity Upper without Contra MR#: [id number] Acct: [id number] Name: KAI MCKEON Rep #: [id number] : 1990 M 33 From: John Musa MD PCP: Dr. Naren Dyer MD Status: REG CLI Study: Extremity Upper without Contra Date of Exam: 03/17/24 Exam# [id number] Ordering Dr: Roman Davison MD STUDY: CT RIGHT SHOULDER REASON FOR EXAM: Male, 33 years old. Assess GT fracture and reduction RADIATION DOSAGE (If Supplied By Facility): CTDIvol = ( 59.95 ) mGy, DLP = ( 1591.92 ) mGycm TECHNIQUE: The patient was scanned in a multi detector CT scanner. High resolution transaxial imaging was performed without the administration of intravenous contrast material. Sagittal and coronal images were reconstructed. Individualized dose optimization techniques were used for this CT. COMPARISON: Comparison is made with prior radiographs dated March 16, 2024. FINDINGS: Normal glenohumeral articulation. Normal glenoid rim, neck and visualized scapula. There is evidence of a comminuted fracture involving the greater tuberosity of the proximal humerus. There is also evidence of a nondisplaced transverse fracture of the surgical neck of the humerus. Normal coracoid process. Normal visualized lateral clavicle. Normal acromioclavicular articulation. There is a Type II morphology (curved), with a neutral orientation. Soft tissue swelling. CT/Extremity Upper without Contra IMPRESSION: Comminuted avulsed displaced fracture of the greater tuberosity as well as a nondisplaced transverse fracture through the surgical neck of the proximal humerus. Soft tissue swelling. Electronically Signed: John Musa MD at 15:44 EDT , I independently reviewed the imaging. Concur with radiologist report. Coding Level of Care Code Off vis,est,level 4 Diagnoses Anterior shoulder dislocation S43.016A Fracture of greater tuberosity of humerus S42.253A Assessment and Plan Assessment and Plan (1) Anterior shoulder dislocation: Status: Acute Plan: 33-year-old man with a proximal humerus fracture dislocation. There is a greater tuberosity fracture fragment that is comminuted and mildly displaced. That alone is not indication for surgery for open reduction internal fixation of the greater tuberosity fragment given the displacement and the attachment of the rotator cuff tendons. In addition there is a fracture through the surgical neck there would be indicated for fixation to prevent displacement there would increase the chance that exists already of avascular necrosis and osteonecrosis of the proximal humeral head. We again explained the options including nonoperative care of open duction internal fixation proximal humerus, possible rotator cuff repair, possible proximal biceps tenodesis. Explained the risks of surgery as well as other risks. The patient understands wished to go ahead with surgery we will try to get on the case for early next week as soon as possible. Most common risk would be a stiffness but could also have weakness damage other structures neurovascular injury infection complications related to anesthetic and other. Patient is on an antihypertensive medication but no diabetes. Pros and cons risks and benefits were discussed with the patient including but not limited to infection, pain, stiffness, bleeding, damage to surrounding structures, neurovascular injury, recurrence or retear, failure or wear of hardware or fixation, instability, fracture, deep vein thrombosis and pulmonary embolism, anesthetic risks, , patient dissatisfaction, need for further surgery and other risks. Patient understood and wished to proceed with surgery, and signed the informed consent documentation. (2) Fracture of greater tuberosity of humerus: [facility] Medical History (Updated 03/24/24 @ 00:00 by Elana Ambrose) Wears contact lenses Wears glasses Depression Alcohol use Back pain Gastric reflux Chewing tobacco dependence Anterior dislocation of right shoulder Fracture of humeral head, right, closed Shoulder pain Hypertension Home Medications ?Medication ?Instructions ?Recorded ?Last Taken ?Type cholecalciferol (vitamin D3) 50 2,000 unit PO DAILY 01/27/19 03/25/24 History mcg (2,000 unit) capsule lisinopril 10 mg tablet 10 mg PO DAILY 01/27/19 03/25/24 History escitalopram oxalate 10 mg tablet 10 mg PO DAILY 07/29/21 03/25/24 History famotidine 40 mg tablet 40 mg PO DAILY 07/29/21 03/25/24 History fluticasone propionate 50 2 spray intranasal PRN PRN 07/29/21 Unknown History mcg/actuation nasal Allergic Symptoms spray,suspension acetaminophen 325 mg capsule 650 mg PO PRN PRN pain 03/17/24 Unknown History (Tylenol) ibuprofen 200 mg tablet 600 mg PO Q6H PRN pain 03/17/24 Unknown History Allergy/AdvReac Type Severity Reaction Status Date / Time No Known Allergies Allergy Verified 03/25/24 11:42 Family History Other Hypertension Surgical History (Updated 03/23/24 @ 13:50 by Brittani Pedersen) Hx of wisdom tooth extraction History of surgery on wrist Hx of tonsillectomy History of elbow surgery Social History Smoking Status: Former smoker alcohol intake: current alcohol intake frequency: a few times a month substance use type: does not use what type of physical activity do you participate in: walking frequency: 1-2 times per week Vital Signs Vital Signs Vital Signs: 03/25/24 11:43 03/25/24 11:43 Temperature 98.6 F Temperature Source Temporal Pulse Rate 80 Respiratory Rate 16 Respiratory Pattern Normal Blood Pressure 152/89 H Blood Pressure Mean 110 Blood Pressure Source Monitor Blood Pressure Position Semi-Fowlers Blood Pressure Location Left Arm Pulse Ox 97 Oxygen Delivery Method Room Air Weight Weight: 374 lb 12.573 oz Body Mass Index (BMI) 50.8
--- NOTE | 2024-03-25 13:08 | PRE.ANES_ITS ---
ASA Classification* ASA Classification ASA Classification: 3 Assessment & Plan Anesthesia* Anesthesia Assessment Anesthesia Assessment: Discussed sedation and/or anesthesia options, risks, benefits, and alternatives with patient/parents/legal guardian/POA. Questions invited. The patient/parents/legal guardian/POA seems to understand and agrees to proceed with anesthesia plan. Reviewed the physical assessment, medical history, allergy history and patient home medications list prior to surgery/procedure/anesthetic and documented any changes. Performed airway and anesthesia risk assessments. Anesthesia Type Anesthesia Type: General History Source History Obtained from:: Patient and Chart Anesthesia Focused Assessment* Temperature: 98.6 F Pulse Rate: 80 Blood Pressure: 152/89 Respiratory Rate: 16 Pulse Ox: 97 Oxygen Delivery Method: Room Air Airway Assessment Mouth opens: >3 cm Mallampati Score: III Teeth Condition: Missing (Patient is missing couple of molars bilateral lower jaw.) Neck Range of motion (ROM): Full ROM Pertinent Findings EKG Pertinent Findings:: July 29, 2021. Sinus tachycardia. 108 bpm. Focused Labs Anesthesia Preop lab: CBC WBC 7.6 K/mm3 (4.4-11.0) 10/11/21 12:09 RBC 5.19 M/mm3 (4.6-6.2) 10/11/21 12:09 Hgb 15.9 g/dL (13.0-16.5) 10/11/21 12:09 Hct 46.9 % (40-54) 10/11/21 12:09 Plt Count 241 K/mm3 (150-450) 10/11/21 12:09 CHEMISTRY Potassium 4.0 mmol/L (3.5-5.1) 09/09/23 10:30 Sodium 136 mmol/L (136-145) 09/09/23 10:30 BUN 12 mg/dL (7-18) 09/09/23 10:30 Creatinine 0.77 mg/dL (0.70-1.30) 09/09/23 10:30 Glucose 95 mg/dL (74-106) 09/09/23 10:30 TSH 2.18 uIU/mL (0.358-3.74) 06/28/22 09:20 COAG PT 12.0 SECONDS (11.7-14.9) 10/11/21 12:09 Pre-Assessment Diagnosis/Proposed Procedure Planned Operative Procedure(s): RIGHT PROXIMAL HUMERUS ORIF POSS ROTATOR CUFF REPAIR POSS BICEP TENDOESIS Anesthesia History 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 When Was Last Pacemaker Check QUESTION #4 FULL TEXT: You/Your Family Experience fever (hyperthermia) with Anesthesia Last Oral Intake Last Oral intake: Last Oral Intake NPO since 20:30 03/25/24 11:43 Meds taken in AM with sips of Yes 03/25/24 11:43 water? Meds patient instructed to take am of surgery PONV PONV - amusement centre manager: PONV - amusement centre manager Female No 03/23/24 13:43 HX of Motion Sickness No 03/23/24 13:43 HX of N/V After Surgery No 03/23/24 13:43 Non-Smoker Yes 03/23/24 13:43 Duration of Surgery greater Yes 03/23/24 13:43 than 60 minutes Number of Risk Factors 2 03/23/24 13:43 PONV Score Moderate Risk 03/23/24 13:43 Height & Weight Height & Weight: Anesthesia: Height & Weight Height 6 ft 03/25/24 11:43 Weight: 170 kg 03/25/24 11:43 Body Mass Index (BMI) 50.8 03/25/24 11:43 Respiratory Assessment Respiratory Assessment - amusement centre manager: Respiratory Tract Infection Hx - amusement centre manager Hx Respiratory Tract Infection No 03/23/24 13:43 STOP Sleep Apnea STOP Sleep Apnea - amusement centre manager: STOP Sleep Apnea - amusement centre manager Hx Hypertension Yes: CONTROLLED WITH MED 03/23/24 13:43 Hx Sleep Apnea No 03/23/24 13:43 CPAP BIPAP Do you snore loudly (louder Yes 03/23/24 13:43 than talking or can be heard Do you often feel tired/ No 03/23/24 13:43 fatigued/ sleepy during daytime? Has anyone observed you stop No 03/23/24 13:43 breathing during sleep? STOP Results Positive 03/23/24 13:43 QUESTION #5 FULL TEXT : Do you snore loudly (louder than talking or can be heard through closed doors)? 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 Specify any problems Hx of Preganancy in last 3 N/A 03/23/24 13:43 Months Nurse Filling Out Transfusion DSCHRIBER 03/23/24 13:43 & Questions: Date: 03/23/24 03/23/24 13:43 Time: 13:45 03/23/24 13:43 Patient unable to answer at this time (ie. confused, unrespo /Reproduction History /Reproductive History - amusement centre manager: /Reproductive Hx- amusement centre manager Hx Now No 03/23/24 13:43 Gestational Age (in weeks): EDC: Hx Hx Para Hx Section SAB No 03/23/24 13:43 Active Medications Active Medications: Current Medications Generic Name Dose Route Start Last Admin Trade Name Freq PRN Reason Stop Dose Admin Cefazolin Sodium 3 gm/ Sodium 115 mls @ 150 mls/hr 03/25/24 12:55 Chloride IV 03/25/24 13:40 PREOP ONE Lactated Ringer's 1,000 mls @ 15 mls/hr 03/25/24 11:30 03/25/24 11:47 IV 15 mls/hr .Q48H MONICA Administration PFSH Medical History (Updated 03/24/24 @ 00:00 by Elana Ambrose) Wears contact lenses Wears glasses Depression Alcohol use Back pain Gastric reflux Chewing tobacco dependence Anterior dislocation of right shoulder Fracture of humeral head, right, closed Shoulder pain Hypertension Home Medications ?Medication ?Instructions ?Recorded ?Last Taken ?Type cholecalciferol (vitamin D3) 50 2,000 unit PO DAILY 01/27/19 03/25/24 History mcg (2,000 unit) capsule lisinopril 10 mg tablet 10 mg PO DAILY 01/27/19 03/25/24 History escitalopram oxalate 10 mg tablet 10 mg PO DAILY 07/29/21 03/25/24 History famotidine 40 mg tablet 40 mg PO DAILY 07/29/21 03/25/24 History fluticasone propionate 50 2 spray intranasal PRN PRN 07/29/21 Unknown History mcg/actuation nasal Allergic Symptoms spray,suspension acetaminophen 325 mg capsule 650 mg PO PRN PRN pain 03/17/24 Unknown History (Tylenol) ibuprofen 200 mg tablet 600 mg PO Q6H PRN pain 03/17/24 Unknown History Allergy/AdvReac Type Severity Reaction Status Date / Time No Known Allergies Allergy Verified 03/25/24 11:42 Family History Other Hypertension Surgical History (Updated 03/23/24 @ 13:50 by Brittani Pedersen) Hx of wisdom tooth extraction History of surgery on wrist Hx of tonsillectomy History of elbow surgery Social History Smoking Status: Former smoker alcohol intake: current alcohol intake frequency: a few times a month substance use type: does not use what type of physical activity do you participate in: walking frequency: 1-2 times per week Review of Systems (Anesthesia) ROS Narrative System reviewed and no additional complaints, except as documented.
[2024-03-25] MEDS: Cefazolin 3 GM in 0.9% Normal Saline (100mL Bag) 100 ML IV (14:15)
--- NOTE | 2024-03-25 14:50 | RAD_ITS ---
STUDY: X-RAY - RIGHT HUMERUS REASON FOR EXAM: Male, 33 years old. Fracture. TECHNIQUE: 14 intraoperative C-arm spot films of the right humerus. COMPARISON: Right shoulder radiographs dated 03/16/2024. FINDINGS: Intraoperative spot films demonstrate sequential images from placement of a metallic sideplate with multiple fixation screws in the right proximal humerus. Normal remainder of the visualized humerus. There is no demonstrated osseous destructive process. There is adjacent soft tissue gas, compatible with surgery. RAD/Humerus min 2 Views IMPRESSION: ORIF hardware placement in the right proximal humerus. Electronically Signed: Poli Smith MD at 8:29 EDT ,
[2024-03-25] MEDS: Bupivacaine 0.25% 30 ML Vial (16:56)
--- NOTE | 2024-03-25 17:50 | DCINST_ITS ---
Discharge Instructions Diet Discharge Diet: No restrictions Dressing / Incision Call your doctor if your incision/area has: Continuous Slow Oozing, Sudden Increased Bleeding, Increased Pain/ Swelling, Increased Redness, Foul Smelling Discharge and Swelling at the incision site Call your doctor if you observe: Fever of 101 or Higher and Coldness, Increased Pain Change Dressing in: leave in place till F/U Cleanse incision/area with: Do not get Incision Wet Follow Up Care Please Follow Up With: Roman Davison MD Test Results: Test results from this visit will be discussed in further detail at your follow- up appointment, if applicable. Discharge Plan Admission Attending Provider: Roman Davison Primary Care Provider: Naren Dyer Instructions Print Language: Turkish Discharge Orders/Prescriptions Prescriptions: New oxycodone-acetaminophen [Percocet] 5-325 mg tablet 1 tab PO Q4H MDD 6 PRN (Reason: pain) 5 Days Qty: 30 0RF No Action lisinopril 10 mg tablet 10 mg PO DAILY cholecalciferol (vitamin D3) 2,000 unit capsule 2,000 unit PO DAILY ibuprofen 200 mg tablet 600 mg PO Q6H PRN (Reason: pain) acetaminophen [Tylenol] 325 mg capsule 650 mg PO PRN PRN (Reason: pain) famotidine 40 mg tablet 40 mg PO DAILY Patient Comments: TAKE 1 TABLET DAILY fluticasone propionate 50 mcg/actuation spray,suspension 2 spray INTRANASAL PRN PRN (Reason: Allergic Symptoms) Patient Comments: USE 1-2 SPRAYS IN EACH NOSTRIL EVERY DAY escitalopram oxalate 10 mg tablet 10 mg PO DAILY Patient Comments: TAKE 1 TABLET BY MOUTH EVERY DAY Referrals / Follow Up: Naren Dyer MD [Primary Care Provider] - Roman Davison MD [Med Staff - Active Staff] - Disposition Disposition (needs filled in before D/C Order can be placed): Home, Self Care
--- NOTE | 2024-03-25 17:55 | PCM.OPRPT ---
Problems Associated Problem List Diagnoses (1) Anterior dislocation of right shoulder: (2) Fracture of humeral head, right, closed: Report of Operation Date of Procedure: 03/25/24 Pre-Operative Diagnosis: Right proximal humerus fracture dislocation Post-Operative Diagnosis: Same Surgery/Procedure Performed:: Right shoulder open reduction internal fixation biceps tenodesis rotator cuff repair Surgeon: oRman Davison Type of Anesthesia: General and Local Anesthesiologist: Chester Ortiz Estimated Blood Loss (mL): 100 Description of Procedure: Patient brought to the operating room theater. Placed on the beachchair positioner. General anesthesia induced. 3 g IV Ancef administered prior to the start of the case. Arm braga to the patient's right side all bony prominences padded. SCDs on the legs. General anesthesia induced. Patient set up at a 45 degree angle. Upper extremity prepped and draped in the usual sterile fashion with chlorhexidine-based prep solution allowing over 3 minutes drying time prior to draping. Preoperative timeout performed, site patient the surgery. Began by making a deltopectoral incision. Carried dissection down through skin subcutaneous tissue achieved meticulous hemostasis. Protected the cephalic vein retracted out laterally developed the interval between the pectoralis and the deltoid. Incised on the lateral aspect of the conjoined tendon. Used a Hayward shoulder retractor. Identified the long head of the biceps followed this through the rotator interval. Performed a biceps tenodesis using 4.75 mm Arthrex swivel lock anchor. Then identified the multiple fracture fragments of the greater tuberosity. Mobilize these placed horizontal mattress #2 FiberWire sutures and these. Cleared away any interposed soft tissue hematoma and periosteum. Achieved preliminary reduction. I then pinned this in place I used horizontal mattress sutures as well as 2 additional 4.75 mm Arthrex bio composite swivel lock anchors. This achieved good reproduction of the footprint and compression at the greater tuberosity fracture fragments. I also put one 3.5 mm fully threaded cortical screw in a lag screw fashion with a small washer at the larger posterior fragment. I also placed a Arthrex precontoured 95 degree laterally based locking plate of the proximal humerus. I inserted a number of different fully threaded cortical screws locking screws proximally as well as to fully threaded cortical screws at the distal most holes in the plate at the oblong hole and just proximal to this into the calcar bone. Fracture remained nondisplaced. I then placed 2 more horizontal mattress sutures through the rotator cuff and then through the superior aspect of the plate. Wound thoroughly irrigated. Final pictures taken and saved onto the system. I ensured to keep the proximal screws short. Fracture is stable through range of motion. Wound thoroughly irrigated subtenons tissue closed with 2-0 Vicryl sutures and skin with 3-0 Monocryl. Skin cleaned with wet and dry dressing 20 cc of quarter percent bupivacaine instilled in around the soft tissues. Skin cleaned with wet dry dressing followed application of Steri-Strips and silver Mepilex border dressing with an abduction pillow sling for the upper extremity. Patient woken up from the general anesthetic transferred off the operating table and taken postanesthetic care unit in stable condition. All sponge needle instrument counts were correct no complications. [id number], [id number], [id number] Complications none Admit VTE Documentation VTE Present on Admission: No VTE Mechan Device Prophylaxis: SCD's VTE Pharm Prophylaxis ordered?: No Reason prophylaxis not ordered:: Treatment Not Indicated Procedures Musculoskeletal [id number]: Other Procedure See Report
--- NOTE | 2024-03-25 18:00 | PCM.POST.ANE ---
Anesthesia: Postop Eval I Current Vital Signs Temperature: 97.4 F Pulse Rate: 82 Blood Pressure: 117/84 Respiratory Rate: 16 Pulse Ox: 94 Oxygen Delivery Method: Room Air Assessment Airway patent: Yes Spontaneous unlabored respirations: Yes Mental status: Awake and Calm nausea: No Vomiting: No Anesthesia Complication: No Fluid Hydration Crystalloid volume administer (ml): 1,800 Total IV fluid infused: 1,800 Progress Note Anesthesia document: Postop Eval 1 completed: Yes
[2024-03-25] MEDS: HYDROcodone Bitartrate/Apap 5/325 Tablet PO (18:34)
--- NOTE | 2024-03-26 07:09 | POSTOPAN2_ITS ---
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 [email or web address] Spontaneous unlabored Yes 03/25/24 18:02 HEARING IMPAIRED [email or web address] respirations Mental status Awake,Calm 03/25/24 18:02 HEARING IMPAIRED [email or web address] nausea No 03/25/24 18:02 HEARING IMPAIRED [email or web address] Vomiting No 03/25/24 18:02 HEARING IMPAIRED [email or web address] Anesthesia Postop Eval I: Fluid Summary Crystalloid volume administer 1,800 03/25/24 18:02 HEARING [email or web address] (ml) Colloids volume administered ( ml) Blood Product volume administered (ml) Total IV fluid infused 1,800 03/25/24 18:02 HEARING IMPAIRED [email or web address] Anesthesia Postop Eval I: Summary Notes Anesthesia Complication No 03/25/24 18:02 HEARING IMPAIRED [email or web address] Anesthesia Complication Comment: Post-operative progress note Anesthesia: Postop Eval II Evaluation Mental status: Awake Pain Level: 0 nausea: No Vomiting: No
--- NOTE | 2024-03-26 07:09 | PCM.POSTANE2 ---
Anesthesia Postop Eval I Sum Postop Eval Completion status Anesthesia document: Postop Eval 1 completed: Yes Anesthesia Postop Eval I Summary Anesthesia Postop Eval I Summary: Anesthesia Postop Eval I: Assessment Summary Airway patent Yes 03/25/24 18:02 [email or web address] Spontaneous unlabored Yes 03/25/24 18:02 [email or web address] [email or web address] respirations Mental status Awake,Calm 03/25/24 18:02 [email or web address] nausea No 03/25/24 18:02 [email or web address] Vomiting No 03/25/24 18:02 [email or web address] [email or web address] Anesthesia Postop Eval I: Fluid Summary Crystalloid volume administer 1,800 03/25/24 18:02 [email or web address] [email or web address] (ml) Colloids volume administered ( ml) Blood Product volume administered (ml) Total IV fluid infused 1,800 03/25/24 18:02 [email or web address] [email or web address] Anesthesia Postop Eval I: Summary Notes Anesthesia Complication No 03/25/24 18:02 [email or web address] Anesthesia Complication Comment: Post-operative progress note Anesthesia: Postop Eval II Evaluation Mental status: Awake Pain Level: 0 nausea: No Vomiting: No
== END 2024-03-25 19:25 | disposition home or self-care (01) ==
LOC: SDC 11:21 → AC 11:22
PROVIDERS: PCP Family Medicine; Referring Provider Orthopaedic Surgery Sports Medicine; Visit Provider Orthopaedic Surgery Sports Medicine
PROC: (CPT 23670; principal; 2024-03-25 12:35)
DX: S42.251A Displaced fracture of greater tuberosity of right humerus, initial encounter for closed fracture (principal); S42.214A Unspecified nondisplaced fracture of surgical neck of right humerus, initial encounter for closed fracture; S43.016A Anterior dislocation of unspecified humerus, initial encounter; X58.XXXA Exposure to other specified factors, initial encounter; I10 Essential (primary) hypertension; J45.909 Unspecified asthma, uncomplicated; F17.220 Nicotine dependence, chewing tobacco, uncomplicated; Z79.899 Other long term (current) drug therapy
CPT/HCPCS: 23670; 23430; 01630; 73060; 76000; C1713; J7120; J2405

== ENCOUNTER 2024-08-06 16:30 | Outpatient (RCR) | payer OTHER, SELFPAY ==
--- NOTE | 2024-04-16 18:42 | HP.PTEVAL_ITS ---
Patient's Visit Information Visit Information Visit Information: KAI MCKEON is a 33 year old M referred to Physical Therapy by Dr. 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 Date of Evaluation: 04/16/24 Physical Therapist: Reginald López, PT, Cert MDT, OCS Visit Plan Frequency: 2x /Week Duration: Indefinite Plan: S/P ORIF HUMERUS ,RTC REPAIR AND TENODESIS 03/25/24 LIMITED ER 40 DEGREES PT INTERVENTIONS ROM ( PROM/AAROM) 6 WEEKS ,MANUAL THERAPY , PROGRESS TO STRENGTHENING RTC/SCAPULAR ,POSTURAL EX'S PER MD ORDER,CP/MHP Subjective Subjective: This 33 y/o male presents to physical therapy with right shoulder open reduction internal fixations (ORIF) ,RTC repair and biceps tenodesis on 03/[address] Davison at [facility] . Patient d/c day of surgery . Patient had sling [address] in 04/14 removed sling start pendulum ex's and ROM.RTD March 12 fell on Vacation in [facility] . Patient urgent care 03/14/24 did x-rays . Patient had x-rays showed 2 part fracture displaced fracture and anterior dislocation humerus ,thus relocated shoulder placed in sling then see DR Davison 03/[address] SCAN RTD 03/18/24.RTD May 12 2024. Patient has pain global . Overcounted medication. Patient sleeping good. Patient has limitations with all functional activities self hygiene and ADL ,OH activities. Patient Goals to return prior level of function and golf. SOCAIL : single VOCATION: [employer] [place] Pain Right: Pain Intensity (Out of 10): 5 Pain Intensity Range: 10 Objective Objective: POSTURE: mild forward posture NEURO:denies paresthesia/tingling INCISION : well approximate OBSERVATION: mild ecchymosis PROM: flexion 100 degrees ,abduction 120 degrees ( scapation) ,ER 10 degrees MMT: ( peak force) 0 Balance/Special Test Scores Quick DASH Score: 70.4525 Goals Goal 1:: Patient to be I with HEP for shoulder Goal Time Frame: 12-16 Weeks Goal 2:: Patient to improve AROM shoulder flexion/abduction 150 degrees to improve function with OH activities . Goal Time Frame: 12-16 Weeks Goal 3:: Patient to improve peak force RTC and deltoid by 15-20# strength aroldo improve function Goal Time Frame: 12-16 Weeks Goal 4:: Patient to demonstrate 70 % improvement with increase function and ADLS Goal Time Frame: 12-16 Weeks Goal 5:: Patient to improve quick dash by 10 points to improve QOL and function Goal Time Frame: 12-16 Weeks Rehabilitation Potential Physical Therapy Diagnosis: Patient unders s/p ORIF humerus ,RTC repair and bicep tenodesis on 03/25 with pain decrease ROM ,strength , impairs ADLS and job demands with activities above 90 degrees thus benefit from skilled PT Rehabilitation Potential: Good Anticipated Interventions Patient/Client Instruction: Educate patient on: Condition and Plan of Care For the Purpose of:: To decrease pain, To increase ROM, To improve muscle performance and motor function, To improve ability to perform ADL's, To increase tolerance to activity/condition/position, To improve health of tissue, To decrease soft tissue restriction, To increase flexibility/ROM, To reduce risk of recurrence, To prevent re-injury and To improve tolerance to ADL's Therapeutic Exercise to Include: Strength training, Postural training, Flexibilty training, Passive ROM, Active ROM and Scapular Strength/Stabilization Comment: RTC PROM/AAROM 6 WEEKS PROGRESS TO STRENGTHENING PER MD For the Purpose of:: To decrease pain, To increase ROM, To improve muscle performance and motor function, To improve ability to perform ADL's, To increase tolerance to activity/condition/position, To improve ability of physical actions for home/community/work/leisure, To improve health of tissue, To decrease soft tissue restriction, To increase flexibility/ROM and To improve tolerance to ADL's Manual Therapy Techniques to Include: Passive ROM For the Purpose of:: To increase ROM, To improve health of tissue, To decrease soft tissue restriction and To increase flexibility/ROM Text: Thank you for the opportunity to evaluate your patient. For Medicare and Medicare HMO plans, please review the plan of care and approve it. It will need to be FAXED BACK to us at [phone] for Medicare purposes. For Medicare only, by signing this I certify the plan of care. Please let me know if there are questions or concerns regarding this plan of care. Physician Signature: Date:
--- NOTE | 2024-04-17 07:21 | HP.PTEVAL ---
Patient's Visit Information Visit Information Visit Information: KAI MCKEON is a 33 year old M referred to Physical Therapy by Dr. 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 Date of Evaluation: 04/16/24 Physical Therapist: Reginald López, PT, Cert MDT, OCS Visit Plan Frequency: 2x /Week Duration: Indefinite Plan: S/P ORIF HUMERUS ,RTC REPAIR AND TENODESIS 03/25/24 LIMITED ER 40 DEGREES PT INTERVENTIONS FOCUS INITIALLY PROM PROGRESS SHEFALI AAROM FOR 6 WEEKS ,MANUAL THERAPY , PROGRESS TO STRENGTHENING RTC/SCAPULAR ,POSTURAL EX'S PER MD ORDER,CP/MHP Subjective Subjective: This 33 y/o male presents to physical therapy with right shoulder open reduction internal fixations (ORIF) ,RTC repair and biceps tenodesis on 03/[address] Davison at [facility] . Patient d/c day of surgery . Patient had sling [address] in 04/14 removed sling start pendulum ex's and ROM.RTD March 12 fell on Vacation in [facility] . Patient urgent care 03/14/24 did x-rays . Patient had x-rays showed 2 part fracture displaced fracture and anterior dislocation humerus ,thus relocated shoulder placed in sling then see DR Davison 03/[address] SCAN RTD 03/18/24.RTD May 12 2024. Patient has pain global . Overcounted medication. Patient sleeping good. Patient has limitations with all functional activities self hygiene and ADL ,OH activities. Patient Goals to return prior level of function and golf. SOCAIL : single VOCATION: [employer] [place] Pain Right: Pain Intensity (Out of 10): 5 Pain Intensity Range: 10 Objective Objective: POSTURE: mild forward posture NEURO:denies paresthesia/tingling INCISION : well approximate OBSERVATION: mild ecchymosis PROM: flexion 100 degrees ,abduction 120 degrees ( scapation) ,ER 10 degrees MMT: ( peak force) 0 Balance/Special Test Scores Quick DASH Score: 70.4525 Goals Goal 1:: Patient to be I with HEP for shoulder Goal Time Frame: 12-16 Weeks Goal 2:: Patient to improve AROM shoulder flexion/abduction 150 degrees to improve function with OH activities . Goal Time Frame: 12-16 Weeks Goal 3:: Patient to improve peak force RTC and deltoid by 15-20# strength shefali improve function Goal Time Frame: 12-16 Weeks Goal 4:: Patient to demonstrate 70 % improvement with increase function and ADLS Goal Time Frame: 12-16 Weeks Goal 5:: Patient to improve quick dash by 10 points to improve QOL and function Goal Time Frame: 12-16 Weeks Rehabilitation Potential Physical Therapy Diagnosis: Patient unders s/p ORIF humerus ,RTC repair and bicep tenodesis on 03/25 with pain decrease ROM ,strength , impairs ADLS and job demands with activities above 90 degrees thus benefit from skilled PT Rehabilitation Potential: Good Anticipated Interventions Patient/Client Instruction: Educate patient on: Condition and Plan of Care For the Purpose of:: To decrease pain, To increase ROM, To improve muscle performance and motor function, To improve ability to perform ADL's, To increase tolerance to activity/condition/position, To improve health of tissue, To decrease soft tissue restriction, To increase flexibility/ROM, To reduce risk of recurrence, To prevent re-injury and To improve tolerance to ADL's Therapeutic Exercise to Include: Strength training, Postural training, Flexibilty training, Passive ROM, Active ROM and Scapular Strength/Stabilization Comment: RTC PROM/AAROM 6 WEEKS PROGRESS TO STRENGTHENING PER MD For the Purpose of:: To decrease pain, To increase ROM, To improve muscle performance and motor function, To improve ability to perform ADL's, To increase tolerance to activity/condition/position, To improve ability of physical actions for home/community/work/leisure, To improve health of tissue, To decrease soft tissue restriction, To increase flexibility/ROM and To improve tolerance to ADL's Manual Therapy Techniques to Include: Passive ROM For the Purpose of:: To increase ROM, To improve health of tissue, To decrease soft tissue restriction and To increase flexibility/ROM Text: Thank you for the opportunity to evaluate your patient. For Medicare and Medicare HMO plans, please review the plan of care and approve it. It will need to be FAXED BACK to us at [phone] for Medicare purposes. For Medicare only, by signing this I certify the plan of care. Please let me know if there are questions or concerns regarding this plan of care. Physician Signature: Date:
--- NOTE | 2024-08-06 16:57 | HP.PTDCSUM ---
Discharge Summary D/C summary: It has been my pleasure to treat KAI MCKEON referred by Dr. 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 Discharge Date: 08/06/24 Please see the following information for a summary of their discharge status. Subjective Subjective: Doing well .ready for d/c Been able to reach behind back lift above cabinet Stiffness in morning Pain Right: Pain Intensity (Out of 10): 0 Overall Improvement % Improvement: 95 Objective Objective/Function: AROM: Shoulder flexion 140 ,abduction 130 degrees ,ER 78 degrees ,IR S1 MMT: ( peak force) infraspinatus 25.2 ,subscapularis 26.7 ,supraspinatus 23.5 ,deltoid 29.1 PROM: 160 flexion /abd 160 degrees Goals Goal 1:: Patient to be I with HEP for shoulder Goal Progress: Progressing Goal 2:: Patient to improve AROM shoulder flexion/abduction 150 degrees to improve function with OH activities . Goal Progress: Goal Met Goal 3:: Patient to improve peak force RTC and deltoid by 15-20# strength aroldo improve function( Goal Progress: Goal Met Goal 4:: Patient to demonstrate 70 % improvement with increase function and ADLS Goal Progress: Goal Met Goal 5:: Patient to improve quick dash by 10 points to improve QOL and function Goal Progress: Goal Met Plan Plan: D/C TO HEP D/C Information Discharge Comments: HEP d/c sentence: If there are questions or concerns regarding this patient's physical therapy, please feel free to call me at [phone]. Thank you for the referral of this patient. Sincerely, Reginald López, PT, Cert MDT, OCS Balance/Gait/Functional tests Balance/Special Test Scores Quick DASH Score: 2.2725 Improvement % Improvement: 95
== END 2024-08-06 19:00 | disposition home or self-care (01) ==
LOC: PT 16:30
PROVIDERS: PCP Family Medicine; Referring Provider Orthopaedic Surgery Sports Medicine; Visit Provider Orthopaedic Surgery Sports Medicine
DX: S43.014D Anterior dislocation of right humerus, subsequent encounter (principal); S42.291D Other displaced fracture of upper end of right humerus, subsequent encounter for fracture with routine healing
CPT/HCPCS: 97110; 97140; 97161; 97530

== ENCOUNTER → 2024-09-16 | Outpatient (CLI) | payer OTHER, SELFPAY ==
[2024-09-16 10:57] LABS: Anion Gap 9 (5-15); BUN 21 mg/dL (7-18); BUN/Creat Ratio 26.9 RATIO (10-20); Calcium,Total 9.4 mg/dL (8.5-10.1); Chloride 107 mmol/L (98-107); Creatinine, Serum 0.78 mg/dL (0.70-1.30); EST Glomerular Filtration Rate 121 mL/min (>60); Est Glom Filt Rate - Afr Amer 146 mL/min (>60); Glucose 103 mg/dL (74-106); Sodium Level 138 mmol/L (136-145)
== END | disposition home or self-care (01) ==
LOC: MTLAB 08:48
PROVIDERS: PCP Family Medicine; Referring Provider Family Medicine; Visit Provider Family Medicine
DX: I10 Essential (primary) hypertension (principal); E55.9 Vitamin D deficiency, unspecified
CPT/HCPCS: 36415; 80048; 82306

== ENCOUNTER 2024-11-23 13:30 | Outpatient (RCR) | payer OTHER, SELFPAY ==
--- NOTE | 2024-10-15 18:49 | HP.PTEVAL_ITS ---
Patient's Visit Information Visit Information Visit Information: KAI MCKEON is a 33 year old M referred to Physical Therapy by Dr. Naren Dyer MD with a diagnosis of BACK PAIN. Date of Evaluation: 10/15/24 Physical Therapist: Reginald López PT, Cert MDT, OCS Visit Plan Frequency: 2x /Week Duration: 4 Weeks Plan: PT INTERVENTIONS : - MOISES EX'S : LEFT SIDE GLIDES F/B STANDING EXTENSION ,Q 1-2 HRS , PROGRESS WITH PROGRESSION OF FORCES TO SAGITTAL -MANUAL THERAPY NEEDED MOBILIZATION -MODALITIES FOR PAIN -PROGRESS TO STABILIZATION PATIENT IS LESS ASYMPTOMATIC -POSTURAL /BODY MECHANICS TRAINING -ACTIVITY MODIFICATION -GOAL TO GYM PROGRAM Subjective Subjective: This 33 y/o male presents to physical therapy with lumbar pain with radicular symptoms in right leg. Patient injury lumbar with bending over cloth picker a piece paper caused sharps pain to buttuck to hip Mid Febuary. Patient also feels symptoms buttock and hip. Patient seen DR Dyer tried stretches hip flexor steroid and muscle relaxer. Patient tried chiropractor but patient declined . Patient had similar incident [address] Brantley . Patient does have appointment DR Brantley November 16. Patient had x-rays - at chiropractor. Aggravating factors sitting ,standing and bending. Initially had shift deformity . Alleviating rest ,sitting with lumbar roll.. Coughing/sneezing+ . Bowel/bladder-. Pain affects sleeping. Patient condition affects QOL and function /job demands. Patient goals to decrease pain. SOCIAL: SINGLE VOCATION: [place] Pain Left Back: Pain Intensity (Out of 10): 4 Pain Intensity Range: 10 Left Hip: Pain Intensity (Out of 10): 4 Pain Intensity Range: 10 Left Lower Extremity: Pain Intensity (Out of 10): 5 Comment: calf Objective Objective: POSTURE: mild forward posture GAIT: reciprocal pattern slight antalgic gait PALAPTION: unremarkable NEURO: denies paresthesia/tingling ,reflexes 2/3 L3-4 ,L4-5 ,L5-S1 MMT: quads/hams 4/5 ,hip flexion 4/5 ,ankle 4/5 FLEXABILITY: hamstrings mild/mod tight LUMBAR ROM: flexion min loss ,extension min/mod lodd ,side glides min loss Special Tests L/S Slump test left side: Negative L/S Slump test right side: Negative L/S Left Straight Leg Raise: Positive L/S Right Straight Leg Raise: Negative Lumbar Standing: Flexion - Mechanical Response: No effect Lumbar Standing: Flexion - Symptoms During Testing: Increases Lumbar Standing: Flexion - Symptoms After Testing: No worse Lumbar Standing: Extension - Mechanical Response: No effect Lumbar Standing: Extension - Symptoms During Testing: Increases Lumbar Standing: Extension - Symptoms After Testing: Worse Lumbar Standing: Right Side Glides - Mechanical Response: No effect Lumbar Standing: Right Side [place] - Symptoms During Testing: No effect Lumbar Standing: Right Side [place] - Symptoms After Testing: No effect Lumbar Standing: Left Side [place] - Mechanical Response: No effect Lumbar Standing: Left Side [place] - Symptoms During Testing: No effect Lumbar Standing: Left Side [place] - Symptoms After Testing: No effect Comments:: NT Lumbar Lying: Extension - Mechanical Response: No effect Lumbar Lying: Extension - Symptoms During Testing: Increases Lumbar Lying: Extension - Symptoms After Testing: No worse Comments:: BACK Balance/Special Test Scores Oswestry Low Back Score: 28 Goals Goal 1:: Patient to be I with HEP for back Goal Time Frame: 4-6 Weeks Goal 2:: Patient to improve lumbar ROM for function of recovery for job demands Goal Time Frame: 4-6 Weeks Goal 3:: Patient to improve back oswestry score by 5 points to improve QOL and function. Goal Time Frame: 4-6 Weeks Goal 4:: Patient to demonstrate 70% improvement with ADLS and job demands Goal Time Frame: 4-6 Weeks Goal 5:: Patient to improve posture/body mechanics 90% to diminish recurrence of symptoms Goal Time Frame: 4-6 Weeks Rehabilitation Potential Physical Therapy Diagnosis: This patient has possible lumbar disc derangement with lateral component ,initially patient had shift right symptoms increase with coughing/sneezing +, pain increases with positioning and motion testing better with correction and moises roll thus benefit skilled PT Rehabilitation Potential: Good Anticipated Interventions Patient/Client Instruction: Educate patient on: Condition and Plan of Care For the Purpose of:: To decrease pain, To increase ROM, To improve muscle performance and motor function, To improve ability to perform ADL's, To increase tolerance to activity/condition/position, To improve ability of physical actions for home/community/work/leisure, To improve health of tissue, To decrease soft tissue restriction, To increase flexibility/ROM, To improve endurance, To improve balance and To reduce risk of recurrence Therapeutic Exercise to Include: Strength training, Body mechanics, Postural training, Flexibilty training, Dynamic Lumbar Stabilization and Moises Exercises For the Purpose of:: To decrease pain, To increase ROM, To improve muscle performance and motor function, To improve ability to perform ADL's, To increase tolerance to activity/condition/position, To improve ability of physical actions for home/community/work/leisure, To improve health of tissue, To decrease soft tissue restriction, To increase flexibility/ROM and To reduce risk of recurrence Manual Therapy Techniques to Include: Mobilization For the Purpose of:: To decrease pain and To increase ROM TENS: Yes IF ES: Yes Cryotherapy (ice pack, ice massage): Yes Thermo therapy (hot pack): Yes For the Purpose of:: To decrease pain, To increase ROM, To improve nutrient delivery to tissue, To increase oxygenation perfusion, To improve health of tissue and To decrease soft tissue restriction Text: Thank you for the opportunity to evaluate your patient. For Medicare and Medicare HMO plans, please review the plan of care and approve it. It will need to be FAXED BACK to us at [phone] for Medicare purposes. For Medicare only, by signing this I certify the plan of care. Please let me know if there are questions or concerns regarding this plan of care. Physician Signature: Date:
--- NOTE | 2024-11-23 14:10 | HP.PTDCSUM ---
Discharge Summary D/C summary: It has been my pleasure to treat KAI MCKEON referred by Dr. Naren Dyer MD, with the diagnosis of BACK PAIN for a total of 9 visit(s). Discharge Date: 11/23/24 Please see the following information for a summary of their discharge status. Subjective Subjective: Doing well today.. Pain Left Back: Pain Intensity (Out of 10): 0 Left Hip: Pain Intensity (Out of 10): 0 Left Lower Extremity: Pain Intensity (Out of 10): 0 Overall Improvement % Improvement: 98 Objective Objective/Function: POSTURE: mild forward posture GAIT: reciprocal pattern slight antalgic gait PALAPTION: unremarkable NEURO: denies paresthesia/tingling ,reflexes 2/3 L3-4 ,L4-5 ,L5-S1 MMT: quads/hams 4/5 ,hip flexion 4/5 ,ankle 4/5 FLEXABILITY: hamstrings mild/mod tight LUMBAR ROM: flexion WFL ,extension WFL ,side glides WFL NO PAIN Goals Goal 1:: Patient to be I with HEP for back Goal Progress: Goal Met Goal 2:: Patient to improve lumbar ROM for function of recovery for job demands Goal Progress: Goal Met Goal 3:: Patient to improve back oswestry score by 5 points to improve QOL and function. Goal Progress: Goal Met Goal 4:: Patient to demonstrate 70% improvement with ADLS and job demands Goal Progress: Goal Met Goal 5:: Patient to improve posture/body mechanics 90% to diminish recurrence of symptoms Goal Progress: Goal Met Plan Plan: D/C D/C Information Discharge Comments: PROVIDED GYM PROGRAM d/c sentence: If there are questions or concerns regarding this patient's physical therapy, please feel free to call me at [phone]. Thank you for the referral of this patient. Sincerely, Reginald López, PT, Cert MDT, OCS Balance/Gait/Functional tests Balance/Special Test Scores Oswestry Low Back Score: 0 Improvement % Improvement: 98
== END 2024-11-23 19:00 | disposition home or self-care (01) ==
LOC: PT 13:30
PROVIDERS: PCP Family Medicine; Referring Provider Family Medicine; Visit Provider Family Medicine
DX: M54.9 Dorsalgia, unspecified (principal); M25.659 Stiffness of unspecified hip, not elsewhere classified
CPT/HCPCS: 97014; 97110; 97162; 97530; G0283